=== PATIENT | male | born 1980 | race Caucasian/White ===

== ENCOUNTER 2018-12-18 09:58 | Emergency (ER) | payer OTHER, SELFPAY ==
[2018-12-18 10:00] VITALS: BP 125/70; PULSE 64; RESP 15; TEMP 36.4; O2SAT 97; BMI 30.7
--- NOTE | 2018-12-18 10:02 | RAD_ITS ---
STUDY: X-RAY - LEFT HAND, ATTENTION FOURTH FINGER REASON FOR EXAM: Male, 38 years old. Pain following injury. TECHNIQUE: 3 view(s) of the finger were obtained. COMPARISON: None. FINDINGS: Normal metacarpal head. Normal metacarpophalangeal joint. Normal proximal phalanx. Normal middle phalanx. Nondisplaced avulsion type fracture at the base of the distal phalanx of the fourth digit. Normal proximal interphalangeal joint. Normal distal interphalangeal joint. RAD/Finger(s) Min 2 Views IMPRESSION: Nondisplaced avulsion type fracture at the base of the distal phalanx of the fourth digit. Electronically Signed: Louie Krause, at 10:49 EDT , Service support ,
--- NOTE | 2018-12-18 10:36 | ED.VISSUMM ---
- ER Visit Summary Date of Service: 12/18/18 Chief Complaint: Left ring finger pain History of Present Illness: The patient is a 38 M who injured his left ring finger at [facility]. Pain is at the base of his distal phalanx. He is left-hand dominant. Physical Examination: Tender to palpation at the above-mentioned area. No laxity. No obvious deformity. There is mild swelling. Skin is intact. Test Results: X-rays show a very small fracture at the base of the distal phalanx, ulnar side, nondisplaced Emergency Department Course and Treatment: Patient placed in aluminum foam splint. Rest, ice, elevate. [id number] remedies for pain. Follow-up with hand surgery. Treatment Plan: As above Disposition: Discharged Impression: 1. Left ring finger fracture This note was generated with Take the Interview dictation software. It may contain incorrect words, spelling, and punctuation that were not noted in review of the chart prior to signing
--- NOTE | 2018-12-18 10:37 | ED.DEP ---
ED Disposition - Plan for ED Patient: Instructions: FRACTURE, Finger (Closed) Referrals: Ken Alcala MD [STAFF PHYSICIAN] -
== END 2018-12-18 11:08 | disposition home or self-care (01) ==
LOC: ED 10:56
PROVIDERS: Emergency Provider Emergency Medicine; Family Provider Internal Medicine; PCP Internal Medicine
DX: S62.665A Nondisplaced fracture of distal phalanx of left ring finger, initial encounter for closed fracture (principal); X58.XXXA Exposure to other specified factors, initial encounter; Y93.75 Activity, martial arts; Y92.89 Other specified places as the place of occurrence of the external cause; Y99.8 Other external cause status
CPT/HCPCS: 73140; 99283

== ENCOUNTER → 2019-01-23 | Outpatient (CLI) | payer OTHER, SELFPAY ==
[2018-12-27 16:31] VITALS: BMI 29.2
--- NOTE | 2019-01-23 14:27 | RAD_ITS ---
STUDY: X-RAY - LEFT HAND, ATTENTION RING FINGER REASON FOR EXAM: Follow-up distal phalangeal fracture. TECHNIQUE: 3 view(s) of the finger were obtained. COMPARISON: Radiographs 12/18/2018. FINDINGS: Normal metacarpal head. Normal metacarpophalangeal joint. Normal proximal phalanx. Normal middle phalanx. There is a very small fracture at the ulnar base of the distal phalanx without significant interval change. Normal proximal interphalangeal joint. Normal distal interphalangeal joint. RAD/Finger(s) Min 2 Views IMPRESSION: No interval change of the very small fracture at the ulnar base of the fourth distal phalanx. Electronically Signed: Celestino Long MD at 15:02 EDT Tel , Service support ,
== END | disposition home or self-care (01) ==
LOC: MTRAD 14:27
PROVIDERS: Family Provider Internal Medicine; PCP Internal Medicine; Referring Provider Surgery; Visit Provider Surgery
DX: M20.012 Mallet finger of left finger(s) (principal); S62.665A Nondisplaced fracture of distal phalanx of left ring finger, initial encounter for closed fracture
CPT/HCPCS: 73140

== ENCOUNTER 2019-03-19 09:12 | Emergency (ER) | payer OTHER, SELFPAY ==
[2019-01-23 14:42] VITALS: BMI 29.2
[2019-03-19 09:12] VITALS: BP 135/76; PULSE 68; RESP 18; TEMP 36.6; O2SAT 98; BMI 28.5
--- NOTE | 2019-03-19 09:19 | RAD_ITS ---
STUDY: X-RAY - LEFT FOOT CLINICAL: Male, 38 years old. Injury and bruising of the great toe. TECHNIQUE: 3 view(s) of the foot. COMPARISON: None. FINDINGS: Normal talus, calcaneus, and tarsal bones. Normal visualized subtalar, talonavicular, calcaneocuboid, tarsal and tarsometatarsal articulations. Normal metatarsi. Normal metatarsophalangeal joint of the great toe. Normal tibial and fibular sesamoid bones. Normal interphalangeal joint of the great toe. Nondisplaced oblique fracture along the distal aspect of the proximal pharynx of the great toe. This abuts the articular surface. Normal second through fifth metatarsophalangeal joints. Normal interphalangeal joints and phalanges of the lesser toes. Soft tissue swelling. RAD/Foot min 3 Views IMPRESSION: Nondisplaced oblique fracture at the distal aspect of the proximal phalanx of the great toe. This abuts the articular surface. Electronically Signed: Louie Krause, at 9:52 EST , Service support ,
--- NOTE | 2019-03-19 09:19 | ED.VIS.GEN ---
History of Present Illness Chief Complaint: Lower Extremity Injury Informant: Patient Onset: Yesterday Current Severity: Mild Maximum Severity: Mild Narrative: Patient presents with left great toe tenderness and swelling after martial arts last night. He denies ankle pain, knee pain or any other injury. Pain is mild, worse with walking it is achy. Past Medical History - Allergies and Home Meds Allergies/Adverse Reactions: Allergies No Known Allergies Allergy (Verified 03/19/19 09:14) Primary Care Physician: Alisha Pantoja MD [Primary Care Provider] - Past Medical History: None Smoking Status: Never smoker Review of Systems General: Reports: - - No head injury or loss of consciousness Musculoskeletal: Reports: Extremity Pain Skin: Reports: - - Contusion of the left toe Neurological: Denies: Numbness Hematologic: Denies: Easy bruising Physical Exam Vital Signs/Narrative: Vital Signs Temp Pulse Resp BP Pulse Ox 03/19/19 09:12 97.8 F 68 18 135/76 H 98 General: No Acute Distress Cardiovascular: Regular rate, Regular rhythm Respiratory: No distress, CTA bilaterally Extremities: - - Left great toe is slightly edematous, there is a contusion at the MP joint. There is no deformity, normal capillary refill normal sensation. Skin: - - Contusion as above Neurological: Normal Strength, Normal Sensation Diagnostic/Tx/Re-eval Left foot x-ray read by me as well as the radiologist, shows a proximal phalanx fracture which involves the distal articular surface. This is nondisplaced - Medical Decision Making Patient has a fracture to the proximal phalanx I will put him in a postop boot, crispin tape and follow-up with orthopedics. Discharge stable condition ED Disposition - Plan for ED Patient: Disposition: Home or Assisted Living Diagnosis: Foot fracture Instructions: FRACTURE, Foot Prescriptions: Naproxen [Naprosyn] 500 mg PO BID PRN #20 tab Prescription Printed Referrals: Terrance Millre DO [STAFF PHYSICIAN] - 5-7 Days
== END 2019-03-19 10:23 | disposition home or self-care (01) ==
PROVIDERS: Emergency Provider Emergency Medicine; Family Provider Internal Medicine; PCP Internal Medicine
DX: S92.415A Nondisplaced fracture of proximal phalanx of left great toe, initial encounter for closed fracture (principal); X58.XXXA Exposure to other specified factors, initial encounter; Y93.75 Activity, martial arts; Y92.89 Other specified places as the place of occurrence of the external cause; Y99.8 Other external cause status
CPT/HCPCS: 73630; 99283

== ENCOUNTER → 2019-03-25 | Outpatient (CLI) | payer OTHER, SELFPAY ==
[2019-03-19 09:12] VITALS: BMI 28.5
--- NOTE | 2019-03-25 09:36 | RAD_ITS ---
STUDY: X-RAY LEFT FOOT, GREAT TOE REASON FOR EXAM: Male, 38 years old. Follow-up fracture TECHNIQUE: 3 view(s) of the toe were obtained. COMPARISON: March 19, 2019 FINDINGS: Normal visualized metatarsus. Normal metatarsophalangeal (M.T.P) joint. Normal interphalangeal joints. There is intra-articular hairline fracture of the distal aspect of the proximal phalanx of the great toe.. No appreciable healing observed. No change since prior study RAD/Toe(s) Min 2 Views IMPRESSION: Persistent hairline fracture of the distal aspect of the proximal phalanx of the great toe unchanged since previous study Electronically Signed: Ted Morrow MD at 22:05 EST , Service support ,
== END | disposition home or self-care (01) ==
LOC: HPRAD 09:36
PROVIDERS: Family Provider Internal Medicine; PCP Internal Medicine; Referring Provider Orthopaedic Surgery; Visit Provider Orthopaedic Surgery
DX: S92.415A Nondisplaced fracture of proximal phalanx of left great toe, initial encounter for closed fracture (principal)
CPT/HCPCS: 73660

== ENCOUNTER → 2019-04-01 | Outpatient (CLI) | payer OTHER, SELFPAY ==
[2019-04-01 09:20] VITALS: BMI 28.5
--- NOTE | 2019-04-01 09:25 | RAD_ITS ---
STUDY: X-RAY LEFT FOOT, FIRST TOE REASON FOR EXAM: Male, 38 years old. Fracture TECHNIQUE: 4 view(s) of the toe were obtained. COMPARISON: Prior study of 03/25/2019 FINDINGS: There is a healing nondisplaced oblique hairline fracture of the distal aspect of the first proximal phalanx with fracture line extending to the interphalangeal joint space. RAD/Toe(s) Min 2 Views IMPRESSION: Healing nondisplaced oblique hairline fracture of the distal first proximal phalanx Electronically Signed: Adam Dang MD at 18:17 EST , Service support ,
== END | disposition home or self-care (01) ==
LOC: HPRAD 09:25
PROVIDERS: Family Provider Internal Medicine; PCP Internal Medicine; Referring Provider Orthopaedic Surgery; Visit Provider Orthopaedic Surgery
DX: S92.403A Displaced unspecified fracture of unspecified great toe, initial encounter for closed fracture (principal)
CPT/HCPCS: 73660

== ENCOUNTER → 2019-04-29 09:41 | Outpatient (CLI) | payer OTHER, SELFPAY ==
[2019-04-29 07:50] VITALS: BMI 28.5
--- NOTE | 2019-04-29 09:42 | RAD_ITS ---
STUDY: X-RAY LEFT FOOT, FIRST TOE REASON FOR EXAM: Male, 38 years old. Fracture follow-up TECHNIQUE: 3 view(s) of the toe were obtained. COMPARISON: 04/01/2019 FINDINGS: Normal visualized metatarsus. Normal metatarsophalangeal (M.T.P) joint. Normal interphalangeal joint. The proximal first phalanx fracture has nearly healed since the prior study. The soft tissue structures are unremarkable. RAD/Toe(s) Min 2 Views IMPRESSION: Nearly complete healing of first proximal phalanx fracture. Electronically Signed: Rodney Light MD (Brooks) at 22:34 EST , Service support ,
== END ==
PROVIDERS: Family Provider Internal Medicine; PCP Internal Medicine; Referring Provider Orthopaedic Surgery; Visit Provider Orthopaedic Surgery
DX: S92.403A Displaced unspecified fracture of unspecified great toe, initial encounter for closed fracture (principal)
CPT/HCPCS: 73660

== ENCOUNTER 2020-01-27 11:18 | Emergency (ER) | payer OTHER, SELFPAY ==
[2019-04-29 07:50] VITALS: BMI 28.5
[2020-01-27 11:18] VITALS: BP 138/99; PULSE 78; RESP 16; TEMP 36.3; O2SAT 97; BMI 28.5
--- NOTE | 2020-01-27 11:45 | RAD_ITS ---
STUDY: X-RAY - LEFT ELBOW REASON FOR EXAM: Male, 39 years old. INJURY TO ELBOW IN JULY, CONTINUED PAIN TECHNIQUE: 3 view(s) of the elbow. COMPARISON: None. FINDINGS: Normal visualized humerus, radius and ulna. Normal radiocapitellar and ulnotrochlear articulations. The soft tissue structures are unremarkable. RAD/Elbow min 3 Views IMPRESSION: Normal x-ray examination of the elbow. Electronically Signed: Louie Krause, at 12:33 EDT , Service support ,
--- NOTE | 2020-01-27 11:56 | ED.VIS.UPPEX ---
History of Present Illness Chief Complaint: Upper Extremity Injury Informant: Patient Onset: Month(s) - 6 Context: Sudden Onset - While playing catch, throwing a baseball with his son Timing: Continuous Quality of Pain: Aching Location: Left elbow Current Severity: Moderate Maximum Severity: Moderate Worsened by: movement Relieved by: remaining still Associated Symptoms: Parasthesia - left little finger, sometimes ring. Negative for: Weakness, Loss of Funtion Narrative: Patient states since throwing a baseball 6 months ago, he has been having discomfort in his elbow, feeling like something is catching may be, and tingling down into his left fingers ulnar aspect of his hand. He has not had this evaluated until today. States he has a PCP but has not visited her. Is [id number]-srhm-[id number]. States he is noticing that his muscles are atrophying since as a result of not using his left upper extremity as much. He also works in information technology, does a lot of typing, extending his elbow makes it worse. Denies any direct trauma. Past Medical History - Allergies and Home Meds Allergies/Adverse Reactions: Allergies No Known Allergies Allergy (Verified 01/27/20 11:18) Primary Care Physician: Alisha Pantoja MD [Primary Care Provider] - Smoking Status: Never smoker Review of Systems General: Denies: Chills, Fever, Sweats Eyes: Denies: Visual changes - bilaterally, Diplopia ENT: Denies: Rhinorrhea, Sore throat Cardiovascular: Denies: Chest pain, Palpitations Respiratory: Denies: Dyspnea, Cough, Dyspnea on exertion Gastrointestinal: Denies: Abdominal pain, Nausea, Vomiting, Diarrhea, Melena, Hematochezia Genitourinary: Denies: Dysuria, Hematuria, Frequency Musculoskeletal: Reports: Extremity Pain. Denies: Back pain Skin: Denies: Rash, Wounds Neurological: Reports: Numbness. Denies: Headache, Weakness Physical Exam Vital Signs/Narrative: Vital Signs Temp Pulse Resp BP Pulse Ox 01/27/20 11:18 97.3 F L 78 16 138/99 H 97 General: Well nourished, Well developed, - - Well-appearing no distress Head: Normocephalic, Atraumatic Neck: Nontender, Full ROM Extremeties: Full range of motion of left elbow with the exception of extension, he is just short of full and limited due to pain only. Diffuse elbow tenderness, but mainly at the lateral epicondyle. Positive Tinel sign at the ulnar tunnel medial left elbow. Skin: Normal color, No rash, No Trauma Neurological: Alert, Oriented x3, Cranial nerves II-XII grossly intact, Normal Strength - Normal median, radial, ulnar nerve function, motor and sensory, left upper extremity with exceptions as noted below, Parasthesia - In left small finger only. Other fingers are unaffected at this time.. Negative for: Weakness Psychological: Normal affect, Normal Mood Diagnostic/Tx/Re-eval Clinical Impression(s) from Imaging Studies Elbow X-Ray 01/27/20 11:45 IMPRESSION: Normal x-ray examination of the elbow. Electronically Signed: Louie Jimi, at 12:33 EDT , Service support , - Medical Decision Making X-rays negative. Concern for ulnar nerve entrapment at the medial aspect of the elbow at the tunnel. Unknown if there is something else going on in the soft tissues around the elbow joint. However at this time I do not think he needs a sling, or any other studies in the emergency department. He needs to see a specialist, will refer him to orthopedics for now, he is comfortable with that plan. 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
[2020-01-27 13:11] VITALS: BP 135/86; PULSE 76; RESP 15; O2SAT 98
== END 2020-01-27 13:12 | disposition home or self-care (01) ==
PROVIDERS: Emergency Provider Emergency Medicine; PCP Internal Medicine
DX: G56.22 Lesion of ulnar nerve, left upper limb (principal); M25.522 Pain in left elbow
CPT/HCPCS: 73080; 99282

== ENCOUNTER 2024-02-05 07:46 | Emergency (ER) | payer BC, SELFPAY ==
[2024-02-05 07:47] VITALS: BP 138/91; PULSE 83; RESP 20; TEMP 36.6; O2SAT 99; BMI 31.4
--- NOTE | 2024-02-05 08:09 | ED.VIS.LOWEX ---
HPI History of Present Illness Chief Complaint: Lower Extremity Injury Informant: patient Narrative Narrative: Patient is a 43-year-old male presenting with sudden onset of left heel pain. Patient states he felt fine when he went to bed. He woke up around 230 with extreme pain in his left heel. He states he feels like there is something wrong with his Achilles tendon. He took 2 Aleve and was able to get back to sleep. He woke up again around 530 or 545 with even worse pain. He states when the pain is bad he gets nauseous and shaking. He took 2 more Aleve with less relief. He states it is much worse with any type of movement to the area or even lightly touching the area. He cannot bear weight on it. He denies any new activities and states he is actually been pretty sedentary the last month. Denies any pain in his back, numbness or any other complaints. Denies any fever or chills. [facility] Medical History (Updated 02/05/24 @ 13:[address] Sonia Roque DO) Seasonal allergies Broken finger Home Medications ?Medication ?Instructions ?Recorded ?Last Taken ?Type cetirizine 10 mg capsule (Zyrtec) 10 mg PO DAILY 12/27/18 Unknown History diphenhydramine HCl 25 mg capsule 25 mg PO QHS 12/27/18 Unknown History (Benadryl) naproxen 500 mg tablet 500 mg PO BID PRN #20 tabs 03/19/19 Unknown Rx oxycodone 5 mg tablet 5 mg PO Q6H PRN pain 3 days #12 02/05/24 Unknown Rx tabs prednisone 20 mg tablet 40 mg (2 x 20 mg) PO DAILY #8 02/05/24 Unknown Rx TABLETS Allergy/AdvReac Type Severity Reaction Status Date / Time No Known Allergies Allergy Verified 02/05/24 07:49 Family History Other CVA (cerebral vascular accident) Colon cancer Social History Smoking Status: Never smoker alcohol intake: current details: SOMETIMES/ SOCIAL substance use type: does not use additional social history: DOES NOT USE ASPIRIN DOES NOT USE IBUPROFEN ROS ROS ED Constitutional Constitutional ED: Denies chills or fever(s) Cardiovascular Cardiovascular: Denies chest pain Respiratory/Chest Respiratory/Chest: Denies cough Gastrointestinal Gastrointestinal: Reports nausea; Denies vomiting Musculoskeletal Musculoskeletal: Reports other Details: left heel pain Integumentary Denies Abrasions or rash Neurologic Neurologic: Denies paresthesias or weakness EXAM Physical Exam Const Vital Signs: 02/05/24 07:47 02/05/24 11:46 Temperature 98 F Temperature Source Oral Pulse Rate 83 60 Respiratory Rate 20 H 16 Blood Pressure 138/91 H 130/76 H Blood Pressure Mean 106 94 Pulse Ox 99 99 Oxygen Delivery Method Room Air Positive well nourished and well developed General Appearance ED: well developed and NAD HEENT Reports moist mucous membranes Chest Wall inspection of chest normal Resp normal respiratory effort and clear to auscultation bilaterally Cardio regular rate and regular rhythm Cardio Narrative: 2+ DP pulses Extremity normal to inspection and full ROM Extremity Narrative: Normal Miller test of the left ankle. Compartments are soft. No crepitus appreciated. There is some some very subtle area of erythema of the heel at the insertion of the Achilles tendon. Patient has pain with even light palpation of the area. Mild tenderness palpation at the insertion of the plantar fascia as well. No deformity or effusion appreciated. No bony tenderness of the malleoli. Neuro oriented x3, moves all extremities and no sensory deficits noted Sensorium / Orientation: alert Motor Exam: strength 5/5 throughout; Negative for general weakness Psych mental status grossly normal Mood & Affect: anxious Skin Skin Narrative: Very subtle area of erythema of the left posterior ankle over the insertion of the Achilles tendon. MDM MDM MDM Narrative Medical decision making narrative: Patient evaluated for atraumatic left ankle pain. Has a very small area of erythema over the insertion of the Achilles tendon in that area. No joint effusion present. Does not really tolerate range of motion but I do not think it is intra-articular as points to the heel/posterior ankle and does not have anterior ankle pain. No effusion present. Patient given oxycodone and ODT Zofran initially. X-ray of the ankle and calcaneus reviewed by myself as well as radiology's not show any acute process. On repeat evaluation patient continues have severe pain with even light palpation or any attempts of range of motion. Because of his continued pain we will get a CT of the ankle as well as check some basic labs. Will give IV morphine and reevaluate. Differential includes is not limited to partial Achilles tendon rupture (has normal Miller test and denies any trauma), tendinitis, gouty arthritis, shingles, septic arthritis and necrotizing fasciitis. Patient reevaluated. Continues have a small localized area of erythema but no acute skin changes otherwise. Continues to have significant pain with attempted to dorsiflex the foot at that area. Workup shows a mild elevation of CRP but otherwise normal. CT does not show any acute process. Patient does have some improvement after receiving IV morphine but continues to have pain. I did offer him more prolonged observation the hospital given his significant pain and for frequent observation. He declined. Will start on steroid for possible tendinitis as a cause of his pain versus gout. On repeat evaluation he does not have short arc range of motion pain of the ankle but significant pain with dorsiflexion. Was counseled that the cause of his pain is not clear but the differential does include a more serious infection (necrotizing fasciitis), gout, tendinitis or shingles. Counseled to keep a close eye on it, weightbearing as tolerated, close outpatient follow-up with podiatry and return to the ed if he has worsening pain, develop fever or redness is moving up his leg. Lab Data Attestation: I reviewed the patient's lab results. Labs: Laboratory Results - last 24 hr 02/05/24 10:43 WBC 9.2 RBC 4.67 Hgb 15.2 Hct 44.4 MCV 95.1 H MCH 32.5 H MCHC 34.2 RDW Std Deviation 41.0 RDW Coeff of Tiara 11.8 Plt Count 252 MPV 10.0 Immature Gran % (Auto) 0.200 Neut % (Auto) 54.2 Lymph % (Auto) 34.4 [place] % (Auto) 8.4 Eos % (Auto) 2.3 Baso % (Auto) 0.5 Absolute Neuts (auto) 5.0 Absolute Lymphs (auto) 3.17 Nucleated RBC % 0 Sodium 139 Potassium 4.3 Chloride 107 Carbon Dioxide 24.0 Anion Gap 8 BUN 13 Creatinine 1.06 Estim Creat Clear Calc 107.05 Est GFR (MDRD) Af Amer 97 Est GFR (MDRD) Non-Af 80 BUN/Creatinine Ratio 12.3 Glucose 101 Lactic Acid 1.5 Calcium 9.1 C-React Prot Ext Range 8.15 H Radiography Diagnostic Testing: Clinical Impression(s) from Imaging Studies Ankle X-Ray 02/05/24 08:30 IMPRESSION: Normal x-ray examination of the left ankle. Electronically Signed: Bal Bradley MD at 9:07 EDT , Os Calcis X-ray 02/05/24 08:30 IMPRESSION: Normal x-ray examination of the calcaneus. Electronically Signed: Bal Bradley MD at 9:09 EDT , Lower Extremity CT 02/05/24 10:17 IMPRESSION: Unremarkable CT examination of the left foot. Electronically Signed: Bal Bradley MD at 11:12 EDT , Discharge Plan Triage Chief Complaint: Lower Extremity Injury ED Provider: Sonia Roque Dx/Rx/DC Orders Clinical Impression: Inflammatory pain of left heel Instructions: ED Pain, Acute, Uncertain Cause Prescriptions: New oxycodone 5 mg tablet 5 mg PO Q6H PRN (Reason: pain) 3 Days Qty: 12 0RF prednisone 20 mg tablet 40 mg PO DAILY Qty: 8 0RF No Action diphenhydramine HCl [Benadryl] 25 mg capsule 25 mg PO QHS Zyrtec 10 mg capsule 10 mg PO DAILY naproxen 500 MG tablet 500 mg PO BID PRN Qty: 20 0RF Primary Care Provider: Alisha Pantoja Referrals: Alisha Pantoja MD [Primary Care Provider] - Tim Cohen DPM [Med Staff - Active Staff] - 1-2 Days if not improving Activity Restrictions/Additional Instructions: The cause of your pain today is not clear. Your workup was largely normal. You had a minimal elevation of your CRP which is nonspecific for an inflammatory process. There does not seem to be an acute infectious process. It could be gout, and inflammation of your tendon or very early shingles. If your pain does not improve or you develop worsening redness, fever or other concerns please return to the emergency room. Print Language: Icelandic Disposition Disposition: Home, Self Care
[2024-02-05] MEDS: oxyCODONE 5 MG Tablet PO (08:13)
[2024-02-05] MEDS: Ondansetron ODT 4 MG Tablet PO (08:14)
--- NOTE | 2024-02-05 08:30 | RAD_ITS ---
STUDY: X-RAY - LEFT CALCANEUS REASON FOR EXAM: Male, 43 years old. Pain. TECHNIQUE: 2 views of the left calcaneus were obtained. COMPARISON: None. FINDINGS: Normal visualized calcaneus. There is no demonstrated fracture. RAD/Calcaneus min 2 Views IMPRESSION: Normal x-ray examination of the calcaneus. Electronically Signed: Bal Bradley MD at 9:09 EDT ,
--- NOTE | 2024-02-05 08:30 | RAD_ITS ---
STUDY: X-RAY - LEFT ANKLE REASON FOR EXAM: Male, 43 years old. Injury/Pain TECHNIQUE: 3 views of the left ankle. COMPARISON: None. FINDINGS: Normal visualized distal tibia and fibula. Normal medial and lateral malleoli. Normal tibiotalar articulation and ankle mortise. Normal visualized talus and calcaneus. The visualized subtalar, talonavicular, calcaneocuboid and tarsal articulations are normal. There is no demonstrated fracture. The soft tissue structures are unremarkable. RAD/Ankle min 3 Views IMPRESSION: Normal x-ray examination of the left ankle. Electronically Signed: Bal Bradley MD at 9:07 EDT ,
--- NOTE | 2024-02-05 10:17 | CT_ITS ---
STUDY: CT LEFT FOOT REASON FOR EXAM: Male, 43 years old. Left foot /heel pain today. Unable to bear weight. No injury. RADIATION DOSAGE (If Supplied By Facility): CTDIvol = ( 15.35 ) mGy, DLP = ( 534.14 ) mGycm TECHNIQUE: Thin section transaxial imaging of the foot was obtained, with sagittal and coronal reconstructed images. Individualized dose optimization techniques were used for this CT. COMPARISON: None. FINDINGS: Normal visualized distal tibia and fibula. Normal talus, calcaneus, and tarsal bones. Normal visualized tibiotalar, subtalar, talonavicular, calcaneocuboid, tarsal and tarsometatarsal articulations. Normal metatarsi. Normal metatarsophalangeal joint of the great toe. Normal tibial and fibular sesamoid bones. Normal interphalangeal joint of the great toe. Normal phalanges of the great toe. Normal second through fifth metatarsophalangeal joints. Normal interphalangeal joints and phalanges of the lesser toes. The soft tissue structures are unremarkable. There is no demonstrated fracture. CT/Extremity Lower without Contra IMPRESSION: Unremarkable CT examination of the left foot. Electronically Signed: Bal Bradley MD at 11:12 EDT ,
[2024-02-05 10:57] LABS: Absolute Lymphocyte Count 3.17 X10^3/uL (0.83-4.51); Basophil# 0.05 X10^3/uL; Basophil% 0.5 % (0-1); Eosinophil# 0.21 X10^3/uL; Eosinophils% 2.3 % (0-5); Hematocrit 44.4 % (40-54); Hemoglobin 15.2 g/dL (13.0-16.5); Lymphocyte # 3.17 X10^3/ul (0.83-4.51); Lymphocyte % 34.4 % (19-41); Mean Corp Hgb Conc 34.2 g/dL (32-36); Mean Corpuscular Hgb 32.5 pg (27.0-32.0); Mean Corpuscular Volume 95.1 fL (80-94); Monocyte# 0.77 X10^3/uL; Monocyte% 8.4 % (0-10); NRBC Flagged by Analyzer 0 % (0-5); Neutrophil % 54.2 % (47-70); Platelet Count 252 K/mm3 (150-450); RBC Distribution Width CV 11.8 % (11.6-14.6); Red Blood Count 4.67 M/mm3 (4.6-6.2); White Blood Count 9.2 K/mm3 (4.4-11.0)
[2024-02-05] MEDS: morphine 8 MG/ML Syringe 6 MG IV (10:57)
[2024-02-05 11:18] LABS: Anion Gap 8 (5-15); BUN 13 mg/dL (7-18); BUN/Creat Ratio 12.3 RATIO (10-20); CRP 8.15 mg/L (0.0-3.0); Calcium,Total 9.1 mg/dL (8.5-10.1); Chloride 107 mmol/L (98-107); Creatinine, Serum 1.06 mg/dL (0.70-1.30); EST Glomerular Filtration Rate 80 mL/min (>60); Est Glom Filt Rate - Afr Amer 97 mL/min (>60); Estimated Creatinine Clearance 107.05 ml/min; Glucose 101 mg/dL (74-106); Potassium 4.3 mmol/L (3.5-5.1); Sodium Level 139 mmol/L (136-145)
[2024-02-05 11:36] LABS: Lactic Acid 1.5 mmol/L (0.4-1.9)
[2024-02-05 11:46] VITALS: BP 130/76; PULSE 60; RESP 16; O2SAT 99
[2024-02-05] MEDS: Morphine 4 MG/ML Syringe IV (13:10)
[2024-02-05] MEDS: predniSONE 20 MG Tablet 60 MG PO (13:11)
== END 2024-02-05 13:18 | disposition home or self-care (01) ==
PROVIDERS: Emergency Provider Emergency Medicine; PCP Internal Medicine; Visit Provider Emergency Medicine
DX: M79.672 Pain in left foot (principal); R79.82 Elevated C-reactive protein (CRP); R11.0 Nausea; M25.572 Pain in left ankle and joints of left foot
CPT/HCPCS: 73610; 73650; 73700; 80048; 83605; 85025; 86140; 96374; 96375; 99283; A4216

== ENCOUNTER → 2024-02-07 | Outpatient (CLI) | payer BC, SELFPAY | END | disposition home or self-care (01) | LOC: MTLAB 11:14 | PROVIDERS: PCP Internal Medicine; Referring Provider Podiatrist; Visit Provider Podiatrist | DX: M79.672 Pain in left foot (principal) | CPT/HCPCS: 36415; 84550 ==